=== PATIENT | male | born 1980 | race Caucasian/White ===

== ENCOUNTER → 2018-08-30 | Outpatient (CLI) | payer BC ==
[~2018-08-30] MED LIST: HUMALOG100 UNIT/1 SUBQ; METFORMIN HCL500 MG PO; NEURONTIN 300300 M1 PO; PRAVACHOL40 MG PO; VICTOZA0.6 MG/0.1 SUBQ
--- NOTE | ~2018-08-30 | PAINCON ---
[address] [address] PAIN MANAGEMENT CONSULTATION Name: ANGELCHRISTOPHERUNA Room: [facility] Milo.#: [id number] Admission: 08/30/18 Attend Phys: Gary Cavazos MD Discharge: Date of : 78 Report #: [id number] THIS REPORT FOR: //name// CC: Devin Cavazos DATE OF SERVICE: 09/10/2018 CHIEF COMPLAINT: Right cervical pain. HISTORY OF PRESENT ILLNESS: The patient is a 38-year-old gentleman who has been referred to the Pain Clinic by his primary physician. The patient states that he has been experiencing pain and discomfort in his right arm. Denies any trauma. States that he simply woke up and noticed pain and discomfort, which worsened with movement. This was about 2 months ago. Notes that the pain was quite problematic. He went to the Emergency Room. Pain was quite severe. Notes that the pain in his right arm radiating down into his forearm and involving his index finger, which was numb. Was unable to go to work because of the pain being as severe as it was. Has tried physical therapy. States he has gone about 2 sessions. He has been given gabapentin and noticed that his pain is tolerable at this juncture. He had an MRI, which showed some narrowing in the C6-C7 area. His understanding is that the disk is putting some pressure on his nerves in his neck. He is scheduled to see a surgeon in the near future. ALLERGIES: No known drug allergies. CURRENT MEDICATIONS: Gabapentin 300 mg p.o. t.i.d., insulin 100 units per mL, Victoza 0.6 mg injection subcu, metformin 500 mg 4 times daily, and Pravachol 40 mg. PAST MEDICAL HISTORY: Diabetes. PAST SURGICAL HISTORY: Hernia repair in 1980. 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 He is working at this juncture. LABORATORY DATA: MRI of the cervical spine dated 07/24/2018 revealed C5-C6 small dorsal osteophyte/disk complex with no focal disk protrusion. There is very mild encroachment on the left exiting neural foramen. The central canal and right exiting neural foramen are patent. Thecal sac is 1 cm AP. C6-C7, there is a broad-based right paracentral to lateral recess disk protrusion. This has mass effect at the lateral recess and narrowing of the right exiting neural foramen. Findings reduced the midline AP diameter of the thecal sac to 0.7 cm. C7-T1 intervertebral disk facets and foramen appeared normal. Thecal sac 1.1 [place] [address] PAIN MANAGEMENT CONSULTATION Name: CHRISTOPHER ORTIZ Room: [facility] JorgeAnnamarie#: [id number] Admission: 08/30/18 Attend Phys: Gary Cavazos MD Discharge: Date of : 78 Report #: [id number] PAIN CLINIC ASSESSMENT/PQRS: 1. Osteoarthritis. The patient is not being treated for osteoarthritis. 2. Height 6 feet 0 inches, weight 255 pounds, BMI is 34.7. 3. Vital signs: Blood pressure 129/86, heart rate 85, respiratory rate 16, room air saturation 94%, temperature 98.0. 4. Pain intensity score 1-2/10. 5. Fall history: The patient has not fallen in the last 3 months. 6. Blood thinner. The patient is not on a blood thinning medication. 7. Hypertension. The patient is not being treated for hypertension. 8. Opioid greater than 6 weeks. The patient is not on an opioid regimen. 9. Risk assessment tool for opioid is low. 10. Functional assessment tool. 11. Recreational drug use. The patient denies use of recreational drugs. 12. Tobacco: The patient denies use of tobacco. 13. Alcohol. The patient rarely uses an alcoholic beverage. PHYSICAL EXAMINATION: GENERAL: The patient is a well-developed and well-nourished white male. Appears his stated age. He is alert and oriented x 3. Affect is appropriate. Speech is fluent. HEENT: Normocephalic and atraumatic. Extraocular eye muscles intact. Sclerae nonicteric. Mucous membranes are moist. NECK: Without adenopathy or JVD. The patient has some pain and discomfort in the right shoulder area with pain that radiates down into the right arm down his forearm involving the index finger, which is numb. HEART: Regular rate. S1 and S2. ABDOMEN: Bowel sounds positive. Nontender. MUSCULOSKELETAL: The patient without significant lumbar scoliosis, kyphosis or lordosis. EXTREMITIES: Upper extremity muscle strength is judged to be 5/5 on the left, 4/5 on the right with decreased sensation and sensory changes involving the index finger. Deep tendon reflexes are +1 for the biceps and triceps bilaterally. Difficult to appreciate that the knees as well as of the ankles. Muscle strength judged to be 5/5 for the major muscle groups in the lower extremity. IMPRESSION: 1. Cervical radiculopathy with numbness and tingling in the right index finger and hand. 2. Diabetes. 3. Hypercholesterolemia. RECOMMENDATIONS: We discussed treatment options with the patient. Risks and benefits of a cervical injection were discussed. Possible complications of the procedure were reviewed. At this juncture, the [place] [address] PAIN MANAGEMENT CONSULTATION Name: CHRISTOPHER ORTIZ Room: [facility] Palacio#: [id number] Admission: 08/30/18 Attend Phys: Gary Cavazos MD Discharge: Date of : 78 Report #: [id number] 1-2. He continues with physical therapy. He will consider a cervical epidural steroid injection if his pain continues. The patient would like to visit with the surgeon and get his opinion. We would like to thank you for letting us participate in his care. We hope he continues to improve. By: [id number]. Andre Cavazos MD /nt
== END ==
LOC: M.PC 05:30
DX: M54.12 Radiculopathy, cervical region (principal); R20.0 Anesthesia of skin; E11.9 Type 2 diabetes mellitus without complications; E78.00 Pure hypercholesterolemia, unspecified

== ENCOUNTER → 2021-02-01 | Outpatient (CLI) | payer OTHER | LOC: M.MRI 07:30 | PROVIDERS: ATTEND Internal Medicine | DX: M50.123 Cervical disc disorder at C6-C7 level with radiculopathy (principal); M47.22 Other spondylosis with radiculopathy, cervical region ==

== ENCOUNTER → 2021-03-09 | Outpatient (CLI) | payer OTHER ==
[~2021-03-09] MED LIST changes: +GLUCOPHAGE1000 MG PO; +HYDROCODON-ACE1 EAC7 PO; +INSULIN AS100 UNIT/5 SUBQ; +LIPITOR10 MG PO; -METFORMIN HCL500 MG PO; -NEURONTIN 300300 M1 PO; +NEURONTIN600 MG PO
== END | disposition home or self-care (01) ==
LOC: M.PC 03-04 10:20
PROVIDERS: ATTEND Anesthesiology Pain Medicine
DX: M50.122 Cervical disc disorder at C5-C6 level with radiculopathy (principal); G89.29 Other chronic pain; M48.02 Spinal stenosis, cervical region; E10.9 Type 1 diabetes mellitus without complications; Z98.890 Other specified postprocedural states; Z79.899 Other long term (current) drug therapy